=== PATIENT | female | born 1975 | race Caucasian/White ===

== ENCOUNTER 2017-07-18 09:41 | Emergency (ER) | payer SELFPAY ==
[~2017-07-18] VITALS: Ht 165.1 cm; Wt 52.0 kg
[~2017-07-18 09:41] MED LIST: FAMO20 PO; FLUO-1 PO; GABA100C4 PO; HYDR-3133 PO; LORTA5 PO; PRAV10 PO; PRED20 PO; SERO25TA PO; TIZA2TAB PO; VENL25TA14 PO; VENTAER INH
[2017-07-18 09:44] VITALS: BP 170/93; PULSE 99; RESP 22; TEMP 97.9; O2SAT 99
--- NOTE | 2017-07-18 10:13 | PD ---
HPI Chief Complaint: Injury Time Seen by Provider: 09:51 Travel History International Travel<30 days: No Contact w/Intl Traveler<30days: No Traveled to known affect area: No History of Present Illness HPI 42-year-old female presents emergency department status post fall down her steps at home last evening. She states there was a loose step which caused her to slip and fall. She now presents with right lateral ankle pain and swelling. She is having difficulty ambulating secondary to the discomfort. Patient denies knee or hip pain. She denies numbness or tingling. Range of motion is somewhat limited secondary to pain. There are no open abrasions or wounds. Pain is 8 out of 10. Patient is allergic to aspirin. PFSH Past Medical History Arthritis: Yes Asthma: Yes Bipolar Disorder: Yes Anxiety: Yes Cancer: No Cardiovascular Problems: Yes (ME (STRESSED INDUCED)) High Cholesterol: Yes Cerebrovascular Accident: Yes (DRUG INDUCED) Diabetes: No Endocrine: No Genitourinary: No Hepatitis: No Hiatal Hernia: No Immune Disorder: No Musculoskeletal: Yes (ARTHRITIS NECK) Neurologic: Yes (DRUG INDUCED STROKE) Psychiatric: Yes (PTSD) Reproductive: Yes (MENORRHAGIA) Respiratory: Yes (ASTHMA) Myocardial Infarction: Yes Thyroid Disease: No ?: Not Past Surgical History AICD: No Hysterectomy: Yes Joint Replacement: No Oral Surgery: Yes (WISDOM TEETH EXTRACT.) Pacemaker: No Other Surgery: Yes (BREAST AUGMENTATION 05/2015) Social History Alcohol Use: No Tobacco Use: Yes (04/08 ppd) Substance Use: Yes (MARIJUANNA ) Allergies-Medications (Allergen,Severity, Reaction): Coded Allergies: aspirin (Unverified Allergy, Severe, THROAT EDEMA/ DYSPNEA, 11/20/16) Reported Meds & Prescriptions Reported Meds & Active Scripts Active Ibuprofen 600 Mg Tab 600 Mg PO Q6H PRN Pepcid 20 Mg Tab (Famotidine) 20 Mg Tab 20 Mg PO DAILY Deltasone (Prednisone) 20 Mg Tab 60 Mg PO DAILY 5 Days Hydroxyzine Hcl (Hydroxyzine HCl) 25 Mg Tab 25 Mg PO Q6H PRN Reported Hydrocodone/Acetaminophen 5 mg/325 mg 1 Tab 1 Tab PO Q6H PRN Zanaflex 2 mg (Tizanidine HCl) 2 Mg Tab 1 Tab PO Q8H Gabapentin 100 Mg Cap 100 Mg PO BID Effexor (Venlafaxine HCl) 25 Mg Tab 25 Mg PO BID Prozac (Fluoxetine HCl) 10 Mg Cap 10 Mg PO DAILY Seroquel 25 mg (Quetiapine Fumarate) 25 Mg Tab 25 Mg PO BID Ventolin Hfa (Albuterol Sulfate) 18 Gm Aero 2 Puff INH PRN * SHAKE WELL BEFORE USE * Pravastatin Sodium (Pravastatin Sod) 10 Mg Tab 10 Mg PO DAILY Review of Systems Except as stated in HPI: all other systems reviewed are Neg General / Constitutional: No: Fever Eyes: No: Visual changes HENT: No: Headaches Cardiovascular: No: Chest Pain or Discomfort Respiratory: No: Shortness of Breath Gastrointestinal: No: Abdominal Pain Genitourinary: No: Dysuria Musculoskeletal: Positive: Arthralgias, Limited ROM, Pain Skin: No Rash Neurologic: No: Weakness Psychiatric: No: Depression Endocrine: No: Polydipsia Hematologic/Lymphatic: No: Easy Bruising Physical Exam Narrative GENERAL: Patient appears in mild to moderate distress. SKIN: Warm and dry. Normal color. Normal turgor. No abrasions or ecchymosis noted. HEAD: Atraumatic. Normocephalic. EYES: Pupils equal and round. No scleral icterus. No injection or drainage. ENT: No nasal bleeding or discharge. Mucous membranes pink and moist. Pharynx is clear. Airways patent NECK: Trachea midline. Supple and nontender CARDIOVASCULAR: Regular rate and rhythm. RESPIRATORY: No accessory muscle use. Clear to auscultation. Breath sounds equal bilaterally. MUSCULOSKELETAL: Extremities without clubbing, cyanosis, or edema. Patient has swelling over the right lateral malleolus of the right ankle. This is tender with palpation. No obvious crepitus is noted. Range of motion is intact although limited by pain. No foot pain or proximal fibular pain. NEUROLOGICAL: Awake and alert. No obvious cranial nerve deficits. Motor grossly within normal limits. Five out of 5 muscle strength in the arms and legs. Normal speech. PSYCHIATRIC: Appropriate mood and affect; insight and judgment normal. Data Data Last Documented VS Vital Signs Date Time Temp Pulse Resp B/P (MAP) Pulse Ox O2 Delivery O2 Flow Rate FiO2 07/18/17 10:14 Room Air 07/18/17 09:44 97.9 99 22 170/93 (118) 99 Orders Orders Ankle, Complete ([id number]) (07/18/17 09:51) Ice/Cold Pack (07/18/17 09:51) Splint Or Brace Apply/Monitor (07/18/17 11:11) Crutches (07/18/17 11:11) MDM Medical Decision Making Medical Screen Exam Complete: Yes Emergency Medical Condition: Yes Differential Diagnosis Slip and fall. Ankle sprain. Ankle fracture. Narrative Course Patient is medically stable at time of exam. X-ray of the right ankle is ordered. Ice pack is placed on the injured ankle. X-ray shows no acute fracture or dislocation, only mild swelling over the lateral malleolus. Patient is placed in Ramirez wrap, ankle stirrup splint, and crutches. Patient is to use splint and crutches as needed until better. Patient is able to bear weight as tolerated. Patient is given ibuprofen 600 mg 4 times daily #40 Patient is to ice the area frequently. Patient is to follow-up if symptoms do not improve over the next week. Diagnosis Primary Impression: Moderate right ankle sprain Qualified Codes: S93.401A - Sprain of unspecified ligament of right ankle, initial encounter Patient Instructions: Ankle Sprain (ED), Ankle Sprain in Children (ED), Ankle Stirrup Splint (ED), Crutch Instructions (ED), General Instructions Additional Instructions: X-ray shows no acute fracture or dislocation, only mild swelling over the lateral malleolus. Patient is placed in Ramirez wrap, ankle stirrup splint, and crutches. Patient is to use splint and crutches as needed until better. Patient is able to bear weight as tolerated. Patient is given ibuprofen 600 mg 4 times daily #40 Patient is to ice the area frequently. Patient is to follow-up if symptoms do not improve over the next week. Med/Other Pt SpecificInfo: Prescription(s) given Scripts Ibuprofen (Ibuprofen) 600 Mg Tab 600 MG PO Q6H Y for Pain/Inflammation, #40 TAB 0 Refills Prov: Casa Blackmon MD 07/18/17 Disposition: 01 DISCHARGE HOME Condition: Stable Nick Gaines Jul 18, 2017 10:13
--- NOTE | 2017-07-18 10:27 | RADRPT ---
EXAM DATE/TIME: 07/18/2017 10:03 [facility] COMPARISON: No previous studies available for comparison. INDICATIONS : Pt fell down stairs last night and heard a "pop" while twisting her ankle. Pt states pain and swellin g around lateral malleolus. MEDICAL HISTORY : None. SURGICAL HISTORY : None. ENCOUNTER: Initial ACUITY: 2 days PAIN SCORE: 9/10 LOCATION: Right ankle FINDINGS: Mild soft tissue swelling is noted involving the lateral malleolus. There is no acute fracture or dis location. The ankle mortise is intact. CONCLUSION: 1. Mild soft tissue swelling involving the lateral malleolus. 2. No acute fracture or dislocation. Travis Reeves MD on July 18, 2017 at 10:23 Board Certified Radiologist. This report was verified electronically.
[2017-07-18] MEDS ORDERED: IBUP-232 PO (11:12)
== END 2017-07-18 11:42 | disposition home or self-care (01) ==
LOC: NEPD 09:41
DX: S93.401A Sprain of unspecified ligament of right ankle, initial encounter (principal); J45.909 Unspecified asthma, uncomplicated; W10.9XXA Fall (on) (from) unspecified stairs and steps, initial encounter; Z88.6 Allergy status to analgesic agent; Z72.0 Tobacco use; F12.90 Cannabis use, unspecified, uncomplicated
CPT/HCPCS: 73610; 99283; E0113; L1906